=== PATIENT | male | born 1970 | race Caucasian/White ===

== ENCOUNTER 2016-07-02 06:23 | Observation (INO) ==
[2016-07-02] MEDS ORDERED: Ondansetron ODT 4 MG TAB.RAPDIS SL ONE (07:11)
[2016-07-02] MEDS ORDERED: *HR* HYDROmorphone (PF) 1 MG/ML SYRINGE IM ONE (07:12)
--- NOTE | 2016-07-02 07:15 | Emergency Department Note ---
Disposition Clinical Impression: Acalculous cholecystitis Disposition: Admitted As Inpatient Condition: Fair Referrals: Humble Troy MD [Emergency Provider] - Forms: Work/School Release, ED Satisfaction Letter Time of Disposition: 08:54 Abdominal Pain HPI - General Chief Complaint: ED Abdominal Pain Stated Complaint: abd pain Time Seen by Provider: 07/02/16 07:07 Source: patient Mode of arrival: ambulatory Limitations: no limitations Nursing Notes Reviewed: Yes Vital Signs Reviewed: Yes - History of Present Illness HPI Narrative: 45-year-old male who states he developed a sore throat and some swelling of his uvula several days ago. Seen by his family doctor yesterday and started on steroids. He states that he then developed some lower back pain and abdominal pain. No vomiting but has had nausea no diarrhea. No fevers. No dysuria no hematuria. Pt Subjective Complaint: abdominal pain Onset (ago): day(s) Consistency: constant Location: LUQ, RUQ (Right upper quadrant pain greater than left upper quadrant pain) Pain Severity: moderate, severe Pain Scale: 8 Quality: aching Radiation: back Migration to: no migration Improves with: nothing Worsens with: nothing Associated symptoms: Reports: nausea. Denies: diarrhea, fever, chills, hematuria Treatments prior to arrival: none - Related Data Allergies Allergy/AdvReac Type Severity Reaction Status Date / Time Antihistamines - Alkylamine Allergy Hives Verified 07/02/16 06:25 All systems ED: reviewed and negative except as stated. Constitutional: Denies: fever, chills, weakness, weight change Eyes: Denies: eye pain, eye discharge, vision change ENT ED: Denies: ear pain, throat pain, dental pain, hearing loss, epistaxis, congestion, dysphagia Cardiovascular: Denies: chest pain, palpitations, dyspnea on exertion, edema, syncope Respiratory: Denies: cough, dyspnea, wheezes, hemoptysis, stridor Gastrointestinal: Reports: abdominal pain. Denies: nausea, vomiting, diarrhea, constipation, hematemesis, melena, hematochezia Genitourinary: Denies: urgency, dysuria, frequency, hematuria Musculoskeletal: Reports: back pain. Denies: neck pain, arthralgia, myalgia Integumentary: Denies: rash, abrasion, lesions Neurological: Denies: headache, weakness, numbness, paresthesias, confusion, abnormal gait, vertigo Psychiatric: Denies: anxiety, depression, suicidal thoughts, homicidal thoughts , auditory hallucinations, visual hallucinations Endocrine: Denies: fatigue Hematological/Lymphatic: Denies: easy bleeding, easy bruising Allergic/Immunologic: Denies: facial swelling, urticaria Abdominal Pain PMH - Past Medical History Medical history: Reports: no medical history Male Surgical History: Reports: no surgical history, other Psychiatric history: Reports: depression - Social History Smoking status: Never smoker Alcohol use: Reports: none Drug use: Reports: none Physical Exam - General Limitations: no limitations General appearance: alert, in no apparent distress - Head Head exam: atraumatic, normocephalic, normal inspection - Eye Eye exam: Present: normal appearance, PERRL, EOMI - ENT ENT exam: normal exam, normal oropharynx, mucous membranes moist - Neck Neck exam: Present: normal inspection, full ROM, trachea midline - Chest Chest inspection: Present: normal inspection, symmetric chest wall rise - Respiratory Respiratory exam: Present: normal lung sounds bilaterally - Cardiovascular Cardiovascular exam: Present: regular rate, normal rhythm, normal heart sounds - Abdominal Exam Abdominal exam: Present: soft, tenderness. Absent: guarding, rebound Abdominal tenderness: Present: RUQ - Extremities Exam Extremities exam: Present: normal inspection, full ROM. Absent: tenderness, pedal edema - Expanded Lower Extremity Exam Neurovascular/Tendon exam: Absent: motor deficit, sensory deficit, tendon deficit Gait: observed and normal - Back Exam Back exam: Present: normal inspection, full ROM. Absent: tenderness - Neurological Exam Neurological exam: Present: alert, oriented X3 - Psychiatric Psychiatric exam: Present: normal affect, normal mood - Skin Skin exam: Present: warm, dry, intact, normal color Course - Reevaluation(s) Reevaluation #1: 45-year-old male who comes in with upper abdominal pain. On examination he is tender in right upper quadrant. Imaging shows some inflammation of the head of the pancreas and some inflammation with some pericholecystic fluid or bladder. His white count and liver functions are normal. Consultation with surgery indicates they would like the patient admitted to the hospitalist for further evaluation possible ERCP. Time: 09:38 - Consultations Consultation #1: Discussed with Dr. Wagner, he would like the patient admitted to the medical service for further evaluation possible evaluation by GI. Time: 08:53 Consultation #2: Discussed with Dr. Pedersen, admit. Time: 09:38 Vital Signs Temperature 97.9 F 07/02/16 06:25 Pulse Rate 89 07/02/16 06:25 Respiratory Rate 16 07/02/16 06:25 Blood Pressure 145/105 07/02/16 06:25 O2 Sat by Pulse Oximetry 96 07/02/16 06:25 Temperature 97.9 F 07/02/16 06:25 Pulse Rate 82 07/02/16 08:40 Respiratory Rate 16 07/02/16 08:40 Blood Pressure 135/91 07/02/16 08:40 O2 Sat by Pulse Oximetry 96 07/02/16 06:25 Oxygen Delivery Oxygen Delivery Room Air Abdominal Pain - Lab Data Lab results reviewed: Yes I reviewed the patient's lab results. Result diagrams: 07/02/16 08:04 07/02/16 08:04 Lab Results 07/02/16 07/02/16 07/02/16 Range/Units 08:04 08:04 08:04 WBC 9.8 (4.3-11.1) K/mcL RBC 4.93 (4.19-5.50) M/mcL Hgb 14.6 (12.9-16.9) g/dL Hct 42.9 (37.5-50.1) % MCV 87.0 (83.0-100.0) fL MCH 29.6 (28.0-33.3) pg MCHC 34.0 (31.6-35.5) g/dL RDW 11.9 (11.5-14.5) % Plt Count 170 (140-400) K/mcL MPV 10.1 (9.4-12.4) fL Immature Gran % 0.6 (0-4) % Seg Neutrophils % 81.2 % Lymphocytes % 11.0 % Monocytes % 6.5 % Eosinophils % 0.2 % Basophils % 0.5 % Neutrophils # 7.9 (1.6-8.9) K/mcL Lymphocytes # 1.1 (0.6-4.6) K/mcL Monocytes # 0.6 (0.0-1.3) K/mcL Eosinophils # 0.0 (0.0-0.6) K/mcL Basophils # 0.1 (0.0-0.2) K/mcL Sodium 138 (136-145) mEq/L Potassium 4.2 (3.5-4.5) mEq/L Chloride 106 (98-109) mEq/L Carbon Dioxide 23 (19-29) mEq/L BUN 13 (8-26) mg/dL Creatinine 0.87 (0.72-1.25) mg/dL Est GFR ( Amer) > 60 (> 60) Est GFR (Non-Af Amer) > 60 (> 60) BUN/Creatinine Ratio 15 (6-26) Glucose 123 H (70-99) mg/dL Calculated Osmolality 287 (280-300) Lactic Acid 0.9 (0.5-2.2) mmol/L Calcium 10.1 (8.6-10.8) mg/dL Total Bilirubin 0.6 (0.2-1.2) mg/dL Direct Bilirubin 0.2 (0.0-0.5) mg/dL Indirect Bilirubin 0.4 (0.0-1.2) mg/dL AST 18 (5-34) Units/L ALT 28 (0-55) Units/L Alkaline Phosphatase 87 (38-126) Units/L Troponin I (0-0.03) ng/mL Serum Total Protein 8.1 (6.0-8.3) g/dL Albumin 3.6 (3.5-5.0) g/dL Globulin 4.5 H (2.4-3.5) g/dL Albumin/Globulin Ratio 0.8 L (1.1-2.2) Amylase 18 L (25-125) Units/L Lipase 19 (8-78) Units/L Urine Color (Yellow) Urine Clarity (Clear) Urine pH (5.0-8.0) pH Units Ur Specific [place] (1.010-1.025) Urine Protein (Neg-Trace) mg/dL Urine Glucose (UA) (Normal) mg/dL Urine Ketones (Negative) mg/dL Urine Blood (Negative) Urine Nitrite (Negative) Urine Bilirubin (Negative) Urine Urobilinogen (Normal) mg/dL Ur Leukocyte Esterase (Negative) Urine Microscopic RBC (0-3) per hpf Urine Microscopic WBC (0-3) per hpf Ur Squamous Epith Cells (None-Few) per lpf Urine Bacteria (None-Few) per hpf Hyaline Casts (None-Few) per lpf Ur Culture Indicated? (NO) 07/02/16 07/02/16 Range/Units 08:04 08:39 WBC (4.3-11.1) K/mcL RBC (4.19-5.50) M/mcL Hgb (12.9-16.9) g/dL Hct (37.5-50.1) % MCV (83.0-100.0) fL MCH (28.0-33.3) pg MCHC (31.6-35.5) g/dL RDW (11.5-14.5) % Plt Count (140-400) K/mcL MPV (9.4-12.4) fL Immature Gran % (0-4) % Seg Neutrophils % % Lymphocytes % % Monocytes % % Eosinophils % % Basophils % % Neutrophils # (1.6-8.9) K/mcL Lymphocytes # (0.6-4.6) K/mcL Monocytes # (0.0-1.3) K/mcL Eosinophils # (0.0-0.6) K/mcL Basophils # (0.0-0.2) K/mcL Sodium (136-145) mEq/L Potassium (3.5-4.5) mEq/L Chloride (98-109) mEq/L Carbon Dioxide (19-29) mEq/L BUN (8-26) mg/dL Creatinine (0.72-1.25) mg/dL Est GFR ( Amer) (> 60) Est GFR (Non-Af Amer) (> 60) BUN/Creatinine Ratio (6-26) Glucose (70-99) mg/dL Calculated Osmolality (280-300) Lactic Acid (0.5-2.2) mmol/L Calcium (8.6-10.8) mg/dL Total Bilirubin (0.2-1.2) mg/dL Direct Bilirubin (0.0-0.5) mg/dL Indirect Bilirubin (0.0-1.2) mg/dL AST (5-34) Units/L ALT (0-55) Units/L Alkaline Phosphatase (38-126) Units/L Troponin I 0.00 (0-0.03) ng/mL Serum Total Protein (6.0-8.3) g/dL Albumin (3.5-5.0) g/dL Globulin (2.4-3.5) g/dL Albumin/Globulin Ratio (1.1-2.2) Amylase (25-125) Units/L Lipase (8-78) Units/L Urine Color Yellow (Yellow) Urine Clarity Clear (Clear) Urine pH 6.0 (5.0-8.0) pH Units Ur Specific [place] > 1.030 H (1.010-1.025) Urine Protein Negative (Neg-Trace) mg/dL Urine Glucose (UA) Normal (Normal) mg/dL Urine Ketones Trace H (Negative) mg/dL Urine Blood Trace H (Negative) Urine Nitrite Negative (Negative) Urine Bilirubin Negative (Negative) Urine Urobilinogen Normal (Normal) mg/dL Ur Leukocyte Esterase Negative (Negative) Urine Microscopic RBC 3-5 H (0-3) per hpf Urine Microscopic WBC 0-3 (0-3) per hpf Ur Squamous Epith Cells None Seen (None-Few) per lpf Urine Bacteria None Seen (None-Few) per hpf Hyaline Casts None Seen (None-Few) per lpf Ur Culture Indicated? NO (NO) - Radiology Data Radiology results reviewed: Yes I reviewed the patient's radiology results. Abdomen/Pelvis CT 07/02/16 07:11 IMPRESSION: Mild inflammatory change surrounding the pancreatic head and proximal body as well as the 3rd portion of the duodenum. No pancreatic duct dilatation or peripancreatic fluid collections. No significant duodenal wall thickening. Findings may be related to acute pancreatitis with reactive changes in the adjacent duodenum. Alternatively, this may represent primary duodenitis with reactive changes in the pancreas. Correlate with amylase and lipase levels. 6 mm right lower lobe pulmonary nodule. Small containing right inguinal hernia. RECOMMENDATIONS: Fleischner Society guidelines for follow-up and management of incidentally detected pulmonary nodules: Single Solid Nodule: Nodule size equals 6-8 mm In a low-risk patient, CT at 6-12 months, then consider CT at 18-24 months. In a high-risk patient, CT at 6-12 months, then CT at 18-24 months. Radiology 2017 http://pubs.rsna.org/doi/full/10.1148/radiol.[email or web address] D/ / Shannon Ortiz MD / Shannon Ortiz MD Interpreting Provider: Shannon Ortiz MD Gallbladder Ultrasound 07/02/16 07:11 IMPRESSION: 1. Gallbladder wall thickening and pericholecystic fluid without findings of cholelithiasis. The findings could be related to acalculous cholecystitis given the symptoms. Consider further evaluation with a nuclear medicine hepatobiliary scan. 2. Moderate to severe hepatic steatosis. Coarsening of hepatic echotexture suggests associated fibrotic change without findings of jenny cirrhosis. D/ / Sam Marsh MD / Sam Marsh MD Interpreting Provider: Sam Marsh MD - EKG Data EKG attestation: Yes I reviewed and interpreted this EKG. EKG shows normal: sinus rhythm Rate: normal Rhythm: NSR Interpretation: no acute changes
[2016-07-02 08:12] LABS: Basophils # 0.1 K/mcL (0.0-0.2); Basophils % 0.5 %; Eosinophils % 0.2 %; Hematocrit 42.9 % (37.5-50.1); Hemoglobin 14.6 g/dL (12.9-16.9); Immature Granulocytes % 0.6 % (0-4); Lymphocytes # 1.1 K/mcL (0.6-4.6); Mean Corpuscular Hemoglobin 29.6 pg (28.0-33.3); Mean Platelet Volume 10.1 fL (9.4-12.4); Monocytes # 0.6 K/mcL (0.0-1.3); Monocytes % 6.5 %; Neutrophils # 7.9 K/mcL (1.6-8.9); Platelet Count 170 K/mcL (140-400); Red Blood Count 4.93 M/mcL (4.19-5.50); Red Cell Distribution Width 11.9 % (11.5-14.5); Segmented Neutrophils % 81.2 %
[2016-07-02 08:29] LABS: Alanine Aminotransferase 28 Units/L (0-55); Albumin 3.6 g/dL (3.5-5.0); Albumin/Globulin Ratio 0.8 (1.1-2.2); Alkaline Phosphatase 87 Units/L (38-126); Amylase 18 Units/L (25-125); Aspartate Amino Transferase 18 Units/L (5-34); BUN/Creatinine Ratio 15 (6-26); Bilirubin,Direct 0.2 mg/dL (0.0-0.5); Bilirubin,Indirect 0.4 mg/dL (0.0-1.2); Bilirubin,Total 0.6 mg/dL (0.2-1.2); Blood Urea Nitrogen 13 mg/dL (8-26); Calcium 10.1 mg/dL (8.6-10.8); Carbon Dioxide 23 mEq/L (19-29); Chloride 106 mEq/L (98-109); Globulin 4.5 g/dL (2.4-3.5); Glucose 123 mg/dL (70-99); Lipase 19 Units/L (8-78); Osmolality,Calculated 287 (280-300); Potassium 4.2 mEq/L (3.5-4.5); Sodium 138 mEq/L (136-145); Total Protein 8.1 g/dL (6.0-8.3); eGFR For African Americans > 60 (> 60); eGFR For Non-African Americans > 60 (> 60)
[2016-07-02 08:46] LABS: Bilirubin,Urine Negative (Negative); Blood,Urine Trace (Negative); Clarity,Urine Clear (Clear); Color,Urine Yellow (Yellow); Glucose,Urine (UA) Normal (Normal); Ketones,Urine Trace mg/dL (Negative); Leukocyte Esterase,Urine Negative (Negative); Nitrite,Urine Negative (Negative); Protein,Urine Negative (Neg-Trace); Specific Gravity,Urine > 1.030 (1.010-1.025); Urobilinogen,Urine Normal (Normal)
[2016-07-02 08:49] LABS: Bacteria,Urine None Seen per hpf (None-Few); Hyaline Casts,Urine None Seen per lpf (None-Few); Squamous Epithelial Cell,Urine None Seen per lpf (None-Few); WBC,Urine 0-3 per hpf (0-3)
[2016-07-02] MEDS ORDERED: *HR* Morphine 2 MG/ML SYRINGE IVP PRN (10:12)
[2016-07-02] MEDS ORDERED: Ondansetron 4 MG/2 ML VIAL IVP PRN (10:12)
[2016-07-02] MEDS ORDERED: Naloxone 0.4 MG/ML INJ IVP PRN (10:12)
[2016-07-02] MEDS ORDERED: Acetaminophen 325 MG TABLET PO PRN (10:12)
[2016-07-02] MEDS ORDERED: Pantoprazole 40 MG VIAL IVP SCH (10:15)
--- NOTE | 2016-07-02 10:23 | Internal Med History&Physical ---
Date of Encounter: 07/02/16 Time of Encounter: 10:20 Assessment and Plan (1) Acalculous cholecystitis Current visit: Yes Status: Acute Unclear etiology May discontinue Rocephin and Flagyl IV if an infection is ruled out Nothing by mouth, continue hydration, morphine as needed Dr. Wagner requested the patient's admission (per ER physician) and suggested a GI consult Sequential compression devices for DT prophylaxis, Protonix for GI prophylaxis. Admitted for observation. Full code. Time spent on this admission 40 minutes (2) Duodenitis Current visit: Yes Status: Acute GI consult Consider EGD Protonix IV (3) Depression Current visit: Yes Status: Acute Continue citalopram Qualifiers: Depression Type: major depressive disorder Active/Remission status: remission status unspecified Qualified Code(s): F32.9 - Major depressive disorder, single episode, unspecified (4) Acute inflammation of the pancreas Current visit: Yes Status: Acute Consider MRI Qualifiers: Pancreatitis type: other Acute pancreatitis complication: unspecified Qualified Code(s): K85.80 - Other acute pancreatitis without necrosis or infection Internal Medicine - H&P: HPI Chief complaint: Abdominal pain Admitted From: Emergency Dept History of present illness: Mr. Taylor is a 45 year old male with a past medical history of depression who was seen by his primary care physician yesterday and was started on steroids due to swelling of his uvula was started last Friday accompanied by sore throat. The patient said that he took the steroids after complaining of abdominal pain since yesterday started in the lower abdomen and progressed to the epigastric area, 8 out of [address] scan of the abdomen shows inflammation close to the head of the pancreas and also duodenitis, pancreatitis could be considered. Ultrasound showed thickening of the gallbladder with pericholecystic fluid concerning for possible acalculous cholecystitis and also hepatic steatosis. Dr. Wagner was called by the ER physician who requested the patient's admission. Amylase is 18 and lipase is 19. The patient complains of some nausea, has not vomited, denies any diarrhea , does not remember having a fever. Blood pressure is 145/108. Also complains of lower back pain, very deep possibly radiating from his abdomen. Past Med Surg Social Fam HX - Past Medical History Medical history: no medical history Psychiatric history: depression - Past Surgical History Surgical History: other (Jaw reconstruction) - Social History Smoking Status: Never smoker Smokeless Tobacco Status: No Alcohol use: none Drug use: none - Additional Family History Additional family history: Father with CAD Internal Medicine - H&P: Meds Allergies Antihistamines - Alkylamine Allergy (Verified 07/02/16 06:25) Hives All Systems PM: A 10-system review of systems was performed and is negative for pertinent findings except as documented above in the HPI. Review of systems: Abdominal pain, other systems out of the Ten reviewed are negative - Constitutional Vitals: Temp Pulse Resp BP Pulse Ox 97.9 F 66 16 122/84 96 07/02/16 06:25 07/02/16 09:30 07/02/16 09:30 07/02/16 09:30 07/02/16 06:25 General appearance: Present: A&O X 3 - Head Head exam: Present: atraumatic, normocephalic - Eye Eye exam: Present: PERRL, conjuntiva pink, sclera anicteric Pupils: Present: PERRL - Neck Neck exam general surgery: Present: supple, trachea midline. Absent: lymphadenopathy - Respiratory Respiratory exam: Present: CTAB. Absent: accessory muscle use, rales, rhonchi, wheezes - Cardiovascular Cardiovascular exam: Present: RRR, +S1, +S2. Absent: diastolic murmur, gallop, rubs, systolic murmur - GI/Abdominal GI/Abdominal exam: Present: distended, normal bowel sounds, soft, tenderness ( Epigastric tenderness, negative Olsen sign), no peritoneal signs - Extremities Exam Extremities exam: Present: warm, radial pulses palpable and symetrical. Absent : calf tenderness, cyanotic, pedal edema - Neurological Exam Neurological exam: Present: CN II-XII intact, oriented X3, no focal deficits. Absent: pronater drift, facial droop, speech deficit - Skin Skin exam: Present: dry, intact Internal Med - H&P Results - Labs CBC & Chem 7: 07/02/16 08:04 07/02/16 08:04
[2016-07-02] MEDS: Ringers Solution, Lactated 1,000 ML IVC SCH ×3 (12:41→22:19)
[2016-07-02] MEDS: MetroNIDAZOLE 500 MG/100 ML 500 MG/100 ML BAG IVPB SCH ×2 (15:17→23:44)
--- NOTE | 2016-07-02 17:34 | Electrocardiograph Report ---
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
[2016-07-02] MEDS ORDERED: *HR* Midazolam HCl 5 MG/5 ML VIAL IVP ONE (18:19)
[2016-07-02] MEDS ORDERED: *HR* FentaNYL (PF) 100 MCG/2 ML VIAL ONE (18:19)
[2016-07-02] MEDS ORDERED: 0.9 % Sodium Chloride 1,000 ML IVC SCH (18:45)
--- NOTE | 2016-07-02 18:49 | Event Note ---
Date of Encounter: 07/02/16 Time of Encounter: 18:00 Patient seen for consult to follow. Imaging and labs reviewed. Patient with some nonspecific symptom for the last couple of days and middle abdominal pain since yesterday. CT and ultrasound reviewed no clinical or radiological evidence of acute cholecystitis. CT does show some peripancreatic and duodenal inflammation. We will do an EGD to make sure he does not have peptic ulcer disease or duodenitis.
[2016-07-02] MEDS ORDERED: Simethicone 40 MG/0.6 ML MLS IR ONE (18:50)
[2016-07-02] MEDS: *HR* Midazolam HCl 5 MG/5 ML VIAL IVP PRN ×3 (18:50→18:58)
[2016-07-02] MEDS ORDERED: Tetracaine/Benzocaine/Butamben 200MG/SPRAY (100SPY/BOT) MM ONE (18:50)
[2016-07-02] MEDS: *HR* FentaNYL (PF) 100 MCG/2 ML VIAL IVP PRN ×2 (18:50→18:52)
[2016-07-02] MEDS ORDERED: 0.9 % Sodium Chloride 500 ML IVC SCH (18:53)
[2016-07-02] MEDS: Pantoprazole 40 MG VIAL IVP SCH (22:19)
[2016-07-03 05:25] LABS: Basophils % 0.5 %; Eosinophils # 0.1 K/mcL (0.0-0.6); Hematocrit 41.3 % (37.5-50.1); Hemoglobin 13.6 g/dL (12.9-16.9); Immature Granulocytes % 0.1 % (0-4); Lymphocytes # 1.4 K/mcL (0.6-4.6); Lymphocytes % 18.1 %; Mean Corpuscular HGB Conc 32.9 g/dL (31.6-35.5); Mean Corpuscular Hemoglobin 29.4 pg (28.0-33.3); Mean Corpuscular Volume 89.4 fL (83.0-100.0); Mean Platelet Volume 10.2 fL (9.4-12.4); Monocytes # 0.7 K/mcL (0.0-1.3); Monocytes % 8.8 %; Neutrophils # 5.4 K/mcL (1.6-8.9); Platelet Count 160 K/mcL (140-400); Red Blood Count 4.62 M/mcL (4.19-5.50); Red Cell Distribution Width 12.1 % (11.5-14.5); Segmented Neutrophils % 71.5 %
[2016-07-03 05:33] LABS: Alanine Aminotransferase 23 Units/L (0-55); Albumin 3.3 g/dL (3.5-5.0); Albumin/Globulin Ratio 0.8 (1.1-2.2); Alkaline Phosphatase 76 Units/L (38-126); Aspartate Amino Transferase 19 Units/L (5-34); BUN/Creatinine Ratio 14 (6-26); Bilirubin,Total 0.7 mg/dL (0.2-1.2); Blood Urea Nitrogen 13 mg/dL (8-26); Calcium 9.3 mg/dL (8.6-10.8); Carbon Dioxide 26 mEq/L (19-29); Chloride 104 mEq/L (98-109); Glucose 106 mg/dL (70-99); Osmolality,Calculated 291 (280-300); Potassium 3.8 mEq/L (3.5-4.5); Sodium 140 mEq/L (136-145); Total Protein 7.3 g/dL (6.0-8.3); eGFR For African Americans > 60 (> 60); eGFR For Non-African Americans > 60 (> 60)
[2016-07-03] MEDS: Pantoprazole 40 MG VIAL IVP SCH ×2 (06:02→16:07)
[2016-07-03] MEDS: Ringers Solution, Lactated 1,000 ML IVC SCH (06:02)
[2016-07-03] MEDS: MetroNIDAZOLE 500 MG/100 ML 500 MG/100 ML BAG IVPB SCH ×2 (08:28→16:08)
[2016-07-03 10:50] LABS: INR 1.4; Prothrombin Time 15.4 Seconds (9.4-12.1)
[2016-07-03 11:24] LABS: Hepatitis A Antibody IgM Nonreactive (Nonreactive); Hepatitis B Core IgM Nonreactive (Nonreactive); Hepatitis B Surface Antigen Nonreactive (Nonreactive); Hepatitis C Virus Antibody Nonreactive (Nonreactive)
--- NOTE | 2016-07-03 12:05 | Internal Med Progress Note ---
Date of Encounter: 07/03/16 Time of Encounter: 12:02 - Assessment and plan (1) Duodenal ulcer Current Visit: Yes Status: Acute Assessment and plan: 07/03/2016: This is a new problem for today. IV Protonix twice a ay. Start clear liquid diet. Start Carafate. Follow-up with GI. Is the first time I am seeing this patient and all medical problems are new to me today. (2) Acalculous cholecystitis Current Visit: Yes Status: Acute Assessment and plan: We will obtain a hepatobiliary nuclear medicine scan with drug to evaluate for cholecystitis. We will continue with IV antibiotics and her interim. If the scan is positive we will consult surgery. (3) Duodenitis Current Visit: Yes Status: Acute Assessment and plan: IV PPI. Zofran for nausea. (4) DVT prophylaxis Current Visit: Yes Status: Acute Assessment and plan: Encourage ambulation. - Subjective Interval history: 07/03/2016: The patient reports mild to moderate epigastric abdominal pain which has improved over the last 2 days. He has been having sharp severe epigastric and right upper quadrant pain for the last 2 days associated with nausea, no vomiting. Denies fevers chills cough or shortness of breath. He had an upper endoscopy done yesterday which found a duodenal ulcer. - Constitutional Vitals: Temp Pulse Resp BP Pulse Ox 98.3 F 71 17 130/90 95 07/03/16 10:44 07/03/16 10:44 07/03/16 10:44 07/03/16 10:44 07/03/16 10:44 General appearance: Present: A&O X 3 - Respiratory Respiratory exam: Present: CTAB. Absent: accessory muscle use, rales, rhonchi, wheezes - Cardiovascular Cardiovascular exam: Present: RRR, +S1, +S2. Absent: diastolic murmur, gallop, rubs, systolic murmur - GI/Abdominal GI/Abdominal exam: Present: normal bowel sounds, soft, no peritoneal signs. Absent: distended, tenderness Additional comments: Tender to palpation in the epigastric area. With no guarding or rebound. Negative Olsen sign. - Extremities Exam Extremities exam: Present: warm, radial pulses palpable and symetrical. Absent : calf tenderness, cyanotic, pedal edema - Skin Skin exam: Present: dry, intact Internal Medicine: Result - Labs CBC & Chem 7: 07/03/16 03:58 07/03/16 03:58 Labs: Short CBC 07/03/16 Range/Units 03:58 WBC 7.6 (4.3-11.1) K/mcL Hgb 13.6 (12.9-16.9) g/dL Hct 41.3 (37.5-50.1) % Plt Count 160 (140-400) K/mcL Neutrophils # 5.4 (1.6-8.9) K/mcL BMP 07/03/16 03:58 Sodium 140 Potassium 3.8 Chloride 104 Carbon Dioxide 26 BUN 13 Creatinine 0.95 Glucose 106 H Calcium 9.3 Liver Function 07/03/16 Range/Units 03:58 Total Bilirubin 0.7 (0.2-1.2) mg/dL AST 19 (5-34) Units/L ALT 23 (0-55) Units/L Alkaline Phosphatase 76 (38-126) Units/L Albumin 3.3 L (3.5-5.0) g/dL - ABG Interpretation ABG results: PT/INR, D-dimer PT 15.4 Seconds (9.4-12.1) H 07/03/16 10:12 - VTE Documentation of Mechanical Device: Intermittent pneumatic compression device Consult Discharge Plan - Plan Referrals: Norma Worrell MD [Primary Care Provider] -
--- NOTE | 2016-07-03 12:53 | Gastroenterology Consult Note ---
<Sam Keene - Last Filed: 07/03/16 12:51> Date of Encounter: 07/03/16 Time of Encounter: 11:25 - Assessment and plan (1) Duodenal ulcer Current Visit: Yes Status: Acute Assessment and plan: EGD with mucosal nodule in the esophagus, gastritis, nonbleeding duodenal ulcer. Continue PPI twice a day. (2) Acalculous cholecystitis Current Visit: Yes Status: Acute Assessment and plan: CT and ultrasound reviewed by Dr. Infante no clinical or radiological evidence of acute cholecystitis. (3) Fatty liver Current Visit: Yes Status: Acute Assessment and plan: RUQ US showed moderate to sever hepatic steatosis with suggested fibrotic changes without jenny cirrhosis. Complete liver work up with AFP, alpha-1 antitrypsin, JOSE, ANCA, ceruloplasmin, F actin, ferritin, hepatitis profile, AMA , PT/INR. Recommend referral to Nutrition. DIETARY ADVISE: Gradual weight loss of 7-10%. Moderate caloric restriction of 500-700 Kcal/day Eliminate or significantly reduce saturated fatty acids and high fructose corn syrup from diet Consider omega-3 fatty acids supplements Consider regular coffee consumption, 2-3 cups/day if can be tolerated - Time Spent With Patient Total time spent is greater than 50% in coordination of care (as documented) at patient's floor/unit and/or counseling patient: GI History of Present Illness - Data of Consult Patient: new to practice Consult date: 07/03/16 Requesting Physician: Adams Guillen MD - Consult Narrative Reason for consult: acalculous cholecystitis History of present illness: Mr. Taylor is a 45 year old male with PMHx of depression presented to the ED with lower abdominal pain that progressed to epigastric region. The pain started the day before admission. CT does show some peripancreatic and duodenal inflammation. RUQ US showed some gallbladder wall thickening but no evidence of acute cholecystitis, also showed moderate to severe hepatic steatosis with suggested fibrotic changes without jenny cirrhosis. He denies alcohol use. Procedures: None NSAIDs: Ibuprofen Anticoagulation: None Past Med Surg Social Fam HX - Past Medical History Medical history: other Psychiatric history: depression - Past Surgical History Surgical History: other - Social History Smoking Status: Never smoker Smokeless Tobacco Status: No Alcohol use: none Drug use: none - Gastrointestinal Gastrointestinal: Present: as per HPI - Constitutional Constitutional: as per HPI - EENT Eyes: as per HPI Ears: Present: as per HPI Nose, mouth and throat: Present: as per HPI - Cardiovascular Cardiovascular ROS: Present: as per HPI - Respiratory Respiratory IM: Present: as per HPI - Genitourinary Genitourinary: Absent: change in color, Urinary frequency - Neurological ROS Neurological GI: Present: as per HPI - Hematologic/Lymphatic Hematologic/Lymphatic pediatric: Present: as per HPI - Musculoskeletal Musculoskeletal ROS GI: Present: as per HPI - Integumentary Integumentary GI: Present: as per HPI - Psychiatric ROS Psychiatric GI: Present: as per HPI - Endocrine Endocrine IM: Present: as per HPI - Constitutional Vitals: Temp Pulse Resp BP Pulse Ox 98.3 F 71 17 130/90 95 07/03/16 10:44 07/03/16 10:44 07/03/16 10:44 07/03/16 10:44 07/03/16 10:44 General appearance: Present: cooperative, A&O X 3, no acute distress, answers questions appropriately - Head Head exam: Present: atraumatic, normocephalic - Eye Eye exam: Present: normal appearance, sclera anicteric - ENT ENT exam: Present: mucous membranes moist - Neck Neck exam general surgery: Present: normal inspection, trachea midline - Respiratory Respiratory exam: Present: CTAB. Absent: rales, rhonchi, wheezes - Cardiovascular Cardiovascular exam: Present: RRR, +S1, +S2 - GI/Abdominal GI/Abdominal exam: Present: soft, tenderness (epigastric ), no peritoneal signs. Absent: distended, firm, guarding - Rectal Rectal exam: Present: deferred - Extremities Exam Extremities exam: Present: warm - Neurological Exam Neurological exam: Present: no focal deficits - Psychiatric Psychiatric exam: Present: normal affect, normal mood - Skin Skin exam: Present: dry, intact, normal color, warm Results - Labs CBC & Chem 7: 07/03/16 03:58 07/03/16 03:58 Labs: Last Result Calcium 9.3 mg/dL (8.6-10.8) 07/03/16 03:58 Ferritin 364 ng/ml (22-275) H 07/03/16 10:12 Troponin I 0.00 ng/mL (0-0.03) 07/02/16 08:04 Entire Visit Hgb 13.6 g/dL (12.9-16.9) 07/03/16 03:58 Hct 41.3 % (37.5-50.1) 07/03/16 03:58 PT 15.4 Seconds (9.4-12.1) H 07/03/16 10:12 Ferritin 364 ng/ml (22-275) H 07/03/16 10:12 Total Bilirubin 0.7 mg/dL (0.2-1.2) 07/03/16 03:58 AST 19 Units/L (5-34) 07/03/16 03:58 ALT 23 Units/L (0-55) 07/03/16 03:58 Amylase 18 Units/L (25-125) L 07/02/16 08:04 Lipase 19 Units/L (8-78) 07/02/16 08:04 - ABG ABG results: PT/INR, D-dimer PT 15.4 Seconds (9.4-12.1) H 07/03/16 10:12 Consult Discharge Plan - Plan Referrals: Norma Worrell MD [Primary Care Provider] - <Kylah Infante - Last Filed: 07/03/16 18:26> Date of Encounter: 07/03/16 Time of Encounter: 14:00 - Time Spent With Patient Total time spent is greater than 50% in coordination of care (as documented) at patient's floor/unit and/or counseling patient: GI History of Present Illness - Data of Consult Requesting Physician: Adams Guillen MD - Consult Narrative History of present illness: Mr. Taylor is a 45 year old male - Constitutional Vitals: Temp Pulse Resp BP Pulse Ox 99.0 F 73 18 133/87 95 07/03/16 14:31 07/03/16 14:31 07/03/16 14:31 07/03/16 14:31 07/03/16 14:31 Results - Labs CBC & Chem 7: 07/03/16 03:58 07/03/16 03:58 Labs: Last Result Calcium 9.3 mg/dL (8.6-10.8) 07/03/16 03:58 Ferritin 364 ng/ml (22-275) H 07/03/16 10:12 Troponin I 0.00 ng/mL (0-0.03) 07/02/16 08:04 Entire Visit Hgb 13.6 g/dL (12.9-16.9) 07/03/16 03:58 Hct 41.3 % (37.5-50.1) 07/03/16 03:58 PT 15.4 Seconds (9.4-12.1) H 07/03/16 10:12 Ferritin 364 ng/ml (22-275) H 07/03/16 10:12 Total Bilirubin 0.7 mg/dL (0.2-1.2) 07/03/16 03:58 AST 19 Units/L (5-34) 07/03/16 03:58 ALT 23 Units/L (0-55) 07/03/16 03:58 Amylase 18 Units/L (25-125) L 07/02/16 08:04 Lipase 19 Units/L (8-78) 07/02/16 08:04 - ABG ABG results: PT/INR, D-dimer PT 15.4 Seconds (9.4-12.1) H 07/03/16 10:12 - Attending Attestation I examined this patient and my medical decision-making was reviewed with the COMMERCIAL [employer]ER/PA/Advanced Practice Nurse/Resident Physician. I agree with the documented findings, disposition and treatment plan as described except to the extent set forth below. Patient with the abdominal pain nonspecific. No radiologic or clinical evidence of acute cholecystitis. Had an EGD done yesterday and abdominal pain is doing better now. Did have a duodenal bulb ulcer. Symptomatically treatment including PPI daily.
[2016-07-03] MEDS: Sucralfate 1 GM TABLET PO SCH ×2 (16:08→21:24)
[2016-07-04] MEDS: MetroNIDAZOLE 500 MG/100 ML 500 MG/100 ML BAG IVPB SCH ×2 (00:23→07:45)
[2016-07-04 05:41] LABS: Eosinophils % 1.2 %; Hematocrit 40.2 % (37.5-50.1); Hemoglobin 13.5 g/dL (12.9-16.9); Immature Granulocytes % 0.4 % (0-4); Lymphocytes % 19.5 %; Mean Corpuscular HGB Conc 33.6 g/dL (31.6-35.5); Mean Corpuscular Hemoglobin 29.5 pg (28.0-33.3); Mean Corpuscular Volume 87.8 fL (83.0-100.0); Mean Platelet Volume 9.9 fL (9.4-12.4); Monocytes % 11.7 %; Platelet Count 148 K/mcL (140-400); Red Blood Count 4.58 M/mcL (4.19-5.50); Red Cell Distribution Width 11.9 % (11.5-14.5); Segmented Neutrophils % 66.5 %
[2016-07-04 05:42] LABS: Basophils # 0.1 K/mcL (0.0-0.2); Basophils % 0.7 %; Eosinophils # 0.1 K/mcL (0.0-0.6); Lymphocytes # 1.5 K/mcL (0.6-4.6); Monocytes # 0.9 K/mcL (0.0-1.3)
[2016-07-04 05:57] LABS: BUN/Creatinine Ratio 10 (6-26); Blood Urea Nitrogen 9 mg/dL (8-26); Calcium 9.3 mg/dL (8.6-10.8); Carbon Dioxide 27 mEq/L (19-29); Chloride 102 mEq/L (98-109); Glucose 102 mg/dL (70-99); Osmolality,Calculated 281 (280-300); Potassium 3.8 mEq/L (3.5-4.5); Sodium 136 mEq/L (136-145); eGFR For African Americans > 60 (> 60); eGFR For Non-African Americans > 60 (> 60)
[2016-07-04] MEDS: Sucralfate 1 GM TABLET PO SCH ×2 (07:43→11:01)
[2016-07-04] MEDS: Pantoprazole 40 MG VIAL IVP SCH (07:47)
[2016-07-04 12:02] VITALS: BP 134/88
[2016-07-04 13:23] LABS: Alpha-1-Antitrypsin 156 mg/dL (90-200)
[2016-07-04 13:24] LABS: AFP Tumor Marker Non-Pregnant 3 ng/mL (0-9)
--- NOTE | 2016-07-04 14:05 | Discharge Summary ---
Date of Encounter: 07/04/16 Time of Encounter: 11:02 - Discharge Diagnosis (1) Duodenal ulcer Priority: Primary Status: Acute (2) Acalculous cholecystitis Priority: Secondary Status: Acute Comments: This diagnosis was ruled out (3) Duodenitis Priority: Secondary Status: Acute (4) Morbid obesity with BMI of 40.0-44.9, adult Priority: Secondary Status: Acute (5) Depression Priority: Secondary Status: Acute Qualifiers: Depression Type: major depressive disorder Active/Remission status: remission status unspecified Qualified Code(s): F32.9 - Major depressive disorder, single episode, unspecified (6) Fatty liver Priority: Secondary Status: Acute - Discharge Medications Prescriptions: Pantoprazole Sodium [Protonix] 40 mg PO BID #60 tablet. Sucralfate [Carafate] 1 gm PO QIDAC #120 tablet Home Medications: Calcium Carbonate [Tums] 1,000 mg PO Q4HR PRN 07/02/16 [History] Citalopram Hydrobromide [Celexa] 40 mg PO DAILY 07/02/16 [History] Ranitidine HCl [Zantac] 300 mg PO HS 07/02/16 [History] Pantoprazole Sodium [Protonix] 40 mg PO BID #60 tablet. 07/04/16 [Rx] Sucralfate [Carafate] 1 gm PO QIDAC #120 tablet 07/04/16 [Rx] Allergies/Adverse Reactions: Allergies Antihistamines - Alkylamine Allergy (Verified 07/02/16 06:25) Hives Date of admission: 07/02/16 09:57 Primary care physician: Norma Davis Consults: 07/02/16 10:19 Consult to Gastroenterology [CONS] Routine Consulting Provider: Gastroenterology Arina Reason for Consult: acalculous cholecystitis Call Completed: Yes 07/04/16 08:24 Consult to Nutrition [CONS] Routine Comment: Consulting Provider: NUTRITION Reason for Dietary Consult: Diet Education Other:: fatty liver. please see GI note - Patient Status Disposition: Home, Self-Care Condition: Fair Functional capacity at discharge: independent ambulation Overall status at discharge: patient is progressing back to baseline - Discharge Instructions Follow Up With: Norma Worrell MD [Primary Care Provider] - Kylah Infante MD [Partnered Physician] - - Diet and Activity Activity: increase activity as tolerated, return to work once cleared by your PCP/specialist Diet: low fat, low cholesterol, other (Mechanical soft) Hospital course: Mr. Taylor is a 45 year old male with a past medical history of depression who presented to the hospital for abdominal pain. He had a CT scan of the abdomen and pelvis which shows inflammation close to the head of the pancreas as well as duodenitis. Ultrasound of the abdomen showed thickening of the gallbladder with pericholecystic fluid concerning for acalculous cholecystitis as well as hepatic steatosis. Patient was admitted to the medical service. GI was consulted. Upon further review of the imaging studies acalculous cholecystitis was ruled out. The patient did receive several doses of antibiotics for suspicion of cholecystitis. He had an EGD done which found a duodenal ulcer with no bleeding. His abdominal pain was attributed to a duodenitis and duodenal ulcer. This has improved. He received treatment with IV Protonix and this has been switched to oral. He tolerated a clear liquid diet which was advanced to mechanical diet. He was instructed to avoid nonsteroidal anti- inflammatory drugs. He will be started on Protonix and Carafate and will be discharged home. He was instructed to follow-up with his PCP and 1-2 weeks and with GI regarding the results of her stomach biopsy and pending tests results which were obtained during this hospitalization for workup of a new diagnosis of fatty liver. The patient verbalizes understanding and agreement with the discharge planning. - Time Spent with Patient Total time spent providing and/or coordinating discharge services: Less than 30 minutes (I have spent 40 minutes cornering this discharge.) - Constitutional Vitals: Temp Pulse Resp BP Pulse Ox 98.7 F 81 16 134/88 94 07/04/16 12:01 07/04/16 12:01 07/04/16 12:01 07/04/16 12:01 07/04/16 12:01 General appearance: Present: A&O X 3 - Respiratory Respiratory exam: Present: CTAB. Absent: accessory muscle use, rales, rhonchi, wheezes - Cardiovascular Cardiovascular exam: Present: RRR, +S1, +S2. Absent: diastolic murmur, gallop, rubs, systolic murmur - GI/Abdominal GI/Abdominal exam: Present: normal bowel sounds, soft, no peritoneal signs. Absent: distended, tenderness - Neurological Exam Neurological exam: Present: CN II-XII intact, oriented X3, no focal deficits. Absent: pronater drift, facial droop, speech deficit - VTE Documentation of Mechanical Device: Intermittent pneumatic compression device
[2016-07-05 07:21] LABS: ANA IgG by ELISA DETECTED (None Detected)
[2016-07-05 11:04] LABS: F-Actin (sm muscle) Ab IgG 14 Units (0-19)
[2016-07-06 08:08] LABS: ANA IgG IFA Titer <1:40 (<1:40); Myeloperoxidase Ab 1 AU/mL (0-19); Serine Protease-3 Antibody 1 AU/mL (0-19)
== END 2016-07-04 15:47 | disposition home or self-care (01) ==
LOC: EMEROO 06:23 → 3ANU 06:23 → SUATTDRO 09:57 → 3ANU 10:27
PROVIDERS: ADMIT Internal Medicine; ATTEND Internal Medicine
PROC: ENDOEBX (2016-07-02 18:30)